=== PATIENT | female | born 1955 | race Caucasian/White ===

== ENCOUNTER → 2016-10-21 | Outpatient (CLI) | payer BC, MEDICARE ==
--- NOTE | 2016-10-22 07:13 | WWHP ---
DATE OF SERVICE: 10/21/2016 CHIEF COMPLAINT: The patient is here for her routine gynecologic exam. HPI: This is a 61-year-old G3, P2-0-1-2 with an LMP of 2005. The patient states it has been more than 3 years since her last pelvic exam. She states she was seen in the emergency room in 06/2016. This was because of abdominal pain in the low abdomen and pelvic areas. She was told she had a UTI and was treated with antibiotics. Her pain did resolve. She thought that it felt more like possible diverticulitis than UTI at that time. She again started having low abdominal and pelvic pains about 3 weeks ago and went to an urgent care clinic. This time it did feel like it was a UTI and she was diagnosed with a UTI and was treated. The pain did resolve. At the time she noticed some sharp stabbing type of pains not greater on one side than the other. She does have a history of diverticulitis in the past and has not gotten frequent urinary tract infections. She was sent by Dr. Giron for a gynecologic exam. PAST MEDICAL HISTORY: Diverticulitis in the past, chronic shoulder problems on the right side and history of gastroesophageal reflux disease. MEDICATIONS: 1. Omeprazole 1 daily. 2. Gabapentin 100 mg q.h.s. 3. Motrin p.r.n. Allergies to LEVAQUIN, SULFA, BACTRIM and MORPHINE. PAST SURGICAL HISTORY: Right shoulder surgeries x5, colonoscopy 08/2016, also left shoulder surgery in 1996, tonsillectomy 1959, hemorrhoidectomy 1995, pilonidal cyst 1979, jaw surgery in 1973, D&C 1977. 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 SOCIAL HISTORY: She denies tobacco and drug use and rarely drinks alcohol about 2 drinks per year. She has been since 1974 and volunteers at [employer]. FAMILY HISTORY: Uncle had gastric cancer. Father had CHF. Mother had a heart attack and Alzheimer's disease. Grandparents had diabetes. Brother has diabetes. REVIEW OF SYSTEMS: Weight has been stable. She denies respiratory, cardiac, or GI problems. PHYSICAL EXAM: Blood pressure 153/94. Height 5 feet 3 inches. Weight 164 pounds. Temperature 96.6, pulse 58. This is a well-developed, well-nourished white female who is alert and oriented x3 in no acute distress. HEENT is within normal limits. NECK: Supple without mass or thyromegaly. CHEST AND LUNGS: Clear to auscultation. HEART: Regular rate and rhythm. Breasts are without mass or discharge. Axillary exam is negative for adenopathy. BACK: Negative for CVA tenderness. ABDOMEN: Mildly obese, soft, nontender, without palpable masses. PELVIC EXAM: External genitalia reveals mild atrophy without lesions. Cervix and vagina reveal mild atrophy without lesions. There is no evidence of prolapse. There is no unusual discharge. There is no cervical motion tenderness. The uterus is midposition, nongravid size and nontender. There are no palpable adnexal masses or tenderness. Rectovaginal exam is negative for mass or tenderness and is negative for occult blood. EXTREMITIES: Nontender. IMPRESSION: 1. A 61-year-old menopausal female with normal gynecologic exam. 2. Two episodes of low abdominal and pelvic pains over the past 5 month. These were diagnosed as urinary tract infections. Differential diagnosis will also include diverticulitis, other gastrointestinal problems and less likely [employer]NAGER pain such as ovarian mass. PLAN: 1. Pap smear was performed. 2. Self breast examination was discussed. 3. The patient had a mammogram done last summer and this was normal per the patient. She will get an order form for her next mammogram with Dr. Giron when it is due. 4. Pelvic ultrasound will be scheduled. 5. She will have her blood pressure checked on a regular basis and she can do this at home. If it is elevated, she will follow up with Dr. Giron for this. 6. She will return in one year and p.r.n.
== END | disposition home or self-care (01) ==
LOC: WWCWWP 09-23 13:48
PROVIDERS: ATTEND Obstetrics & Gynecology
DX: Z53.9 Procedure and treatment not carried out, unspecified reason (principal)

== ENCOUNTER → 2019-06-01 | Outpatient (CLI) | payer MEDICARE ==
--- NOTE | 2019-06-01 08:59 | CT ---
EXAMINATION TYPE: CT shoulder RT wo con DATE OF EXAM: 06/01/2019 COMPARISON: None. HISTORY: Adhesive Capsulitis Rt shoulder, history of right shoulder replacement surgery to correct. CT DLP: 375.3 mGycm Automated exposure control for dose reduction was used. FINDINGS: Metallic hardware from reverse right shoulder arthroplasty is present causing streak artifact making evaluation slightly suboptimal. The glenosphere appears flush with the osseous glenoid. Proximal hum eral component is thought satisfactory in position centered on the glenosphere. No suspicious surroun ding lucency is seen. Subscapularis spurring or notching inferiorly coronal image 34 is noted. [place] osseous structures somewhat demineralized. Type II downsloping acromion. Suspect distal clavicular r esection. No suspicious bony fragments. Metallic anchor lateral humeral head noted. Muscle bulk fairly well preserved. No suspicious focal fluid collection. Slightly enlarged lower righ t axillary lymph node measuring 1.5 x 1.1 cm axial image 25. Visualized portion of right lung is lakshmi r. IMPRESSION: As above.
[2019-06-01 09:24] LABS: Basophils % (A) 1 %; Eosinophils # (A) 0.1 k/uL (0-0.7); Eosinophils % (A) 2 %; HCT 41.7 % (34.0-46.0); HGB 13.7 gm/dL (11.4-16.0); Lymphocytes # (A) 2.6 k/uL (1.0-4.8); Lymphocytes % (A) 40 %; MCH 30.3 pg (25.0-35.0); MCHC 32.8 g/dL (31.0-37.0); MCV 92.4 fL (80.0-100.0); Mean Platelet Volume 6.4; Monocytes # (A) 0.5 k/uL (0-1.0); Monocytes % (A) 7 %; Neutrophils # (A) 3.1 k/uL (1.3-7.7); Neutrophils % (A) 48 %; Platelet Count 324 k/uL (150-450); RBC 4.51 m/uL (3.80-5.40); RDW 13.7 % (11.5-15.5); WBC 6.5 k/uL (3.8-10.6)
[2019-06-01 10:37] LABS: Erythrocyte Sedimentation Rate 13 mm/hr (0-20)
== END | disposition home or self-care (01) ==
LOC: RADCTMAIN 07:46
PROVIDERS: ATTEND Orthopaedic Surgery Adult Reconstructive Orthopaedic Surgery
DX: Z09 Encounter for follow-up examination after completed treatment for conditions other than malignant neoplasm (principal); M75.01 Adhesive capsulitis of right shoulder; Z96.611 Presence of right artificial shoulder joint
CPT/HCPCS: 85025; 85652; 86140

== ENCOUNTER → 2020-11-05 | Outpatient (CLI) | payer MEDICARE, OTHER ==
--- NOTE | 2020-11-05 11:48 | MR ---
EXAMINATION TYPE: MR cervical spine wo con DATE OF EXAM: 11/05/2020 COMPARISON: HISTORY: Pain in both side of neck, going into head and to shoulders TECHNIQUE: Multiplanar, multisequence images of the cervical spine were acquired. C2-C3: No evidence for degenerative disc disease. No disc bulge/herniation or protrusion. No Canal stenosis. Foramina are patent bilaterally. C3-C4: No evidence for degenerative disc disease. No disc bulge/herniation or protrusion. No Canal stenosis. Foramina are patent bilaterally. C4-C5: There is some mild foraminal encroachment due to uncovertebral joint hypertrophy. No evident d isc herniation or spinal stenosis. C5-C6: No evidence for degenerative disc disease. No disc bulge/herniation or protrusion. No Canal stenosis. Foramina are patent bilaterally. C6-C7: No evidence for degenerative disc disease. No disc bulge/herniation or protrusion. No Canal stenosis. Foramina are patent bilaterally. C7-T1: No evidence for degenerative disc disease. No disc bulge/herniation or protrusion. No Canal stenosis. Foramina are patent bilaterally. Cervical segments are intact. There is normal alignment. Cervical spinal cord is of normal signal. Craniovertebral junction relationships are within normal limits. Some loss of disc height C4-5. The re is mild associated spondylosis, endplate discogenic marrow signal change. There is a mild spinal c urvature present. No significant spinal stenosis. IMPRESSION: There is mild degenerative disc disease, foraminal encroachment. No significant spinal stenosis or si zable disc herniation.
== END | disposition home or self-care (01) ==
LOC: RADMRIMAIN 08:43
PROVIDERS: ATTEND Physical Medicine & Rehabilitation
DX: M50.10 Cervical disc disorder with radiculopathy, unspecified cervical region (principal)
CPT/HCPCS: 72141

== ENCOUNTER → 2021-06-05 | Outpatient (CLI) | payer MEDICARE ==
[2021-06-05 12:29] LABS: Calcium 9.5 mg/dL (8.4-10.2); Magnesium 2.1 mg/dL (1.6-2.3)
[2021-06-05 12:30] LABS: Ionized Calcium 4.9 mg/dL (4.5-5.3)
== END | disposition home or self-care (01) ==
LOC: LABWHC1 11:33
PROVIDERS: ATTEND Surgery
DX: E89.2 Postprocedural hypoparathyroidism (principal); R20.0 Anesthesia of skin; R20.2 Paresthesia of skin
CPT/HCPCS: 36415; 82306; 82310; 82330; 83735; 83970